=== PATIENT | female | born 1955 | race Caucasian/White ===

== ENCOUNTER → 2017-07-29 | Outpatient (CLI) | payer OTHER ==
[~2017-07-29] MED LIST: ACT35 PO; CLB200 PO; CONJ.6255 PO; OXYC-57 PO
[2017-07-29 12:31] LABS: HEMATOCRIT 39.9 % (37-47); MEAN CELL VOLUME 84.9 fL (80-100); MEAN CORPUSCULAR HEMOGLOBIN 28.3 pg (25-34); MEAN CORPUSCULAR HGB CONC 33.3 g/dl (32-36); MEAN PLATELET VOLUME 10.8 fL (7.4-10.4); PLATELET COUNT 132 K/uL (130-400); WHITE BLOOD COUNT 4.59 K/uL (4.8-10.8)
[2017-07-29 12:47] LABS: URINE APPEARANCE CLEAR (CLEAR); URINE BILIRUBIN NEG (NEG); URINE COLOR YELLOW; URINE EPITHELIAL CELL AUTO >30 /lpf (0-5); URINE NITRITE NEG (NEG); URINE PH 6.5 (4.5-7.5); URINE SPECIFIC GRAVITY 1.014 (1.000-1.030); UROBILINOGEN NEG (NEG); ZZUR CULT IF INDIC CLEAN CATCH YES
[2017-07-29 12:51] LABS: MANUAL MICROSCOPIC REQUIRED? NO; REVIEW REQ? NO
[2017-07-29 12:55] LABS: ALT/SGPT 31 U/L (12-78); BLOOD UREA NITROGEN 14 mg/dl (7-18); CARBON DIOXIDE 26 mmol/L (21-32); CHLORIDE 106 mmol/L (98-107); CHOLESTEROL 181 mg/dl (0-200); CREATININE 0.81 mg/dl (0.60-1.20); GLUCOSE 98 mg/dl (70-99); POTASSIUM 4.1 mmol/L (3.5-5.1); SODIUM 141 mmol/L (136-145); TRIGLYCERIDES 147 mg/dl (0-150); VERY LOW DENSITY LIPOPROT CALC 29 mg/dl
[2017-07-29 12:58] LABS: CHOLESTEROL/HDL RATIO 4.2; HDL CHOLESTEROL 43 mg/dl
== END | disposition home or self-care (01) ==
LOC: C.LABMFLN 07:53
PROVIDERS: ATTEND Family Medicine
DX: E78.5 Hyperlipidemia, unspecified (principal); I10 Essential (primary) hypertension; D69.3 Immune thrombocytopenic purpura

== ENCOUNTER → 2018-01-04 | Outpatient (CLI) | payer OTHER ==
[2018-01-04 18:04] LABS: BASO % 0.4 %; BASO ABS # 0.02 K/uL (0-0.2); EOS ABS # 0.27 K/uL (0-0.5); HEMATOCRIT 40.6 % (37-47); HEMOGLOBIN 13.7 g/dL (12.0-16.0); IG# 0.02 K/uL (0.00-0.02); LYMPH % 22.3 %; MEAN CELL VOLUME 84.1 fL (80-100); MEAN CORPUSCULAR HEMOGLOBIN 28.4 pg (25-34); MEAN CORPUSCULAR HGB CONC 33.7 g/dl (32-36); MEAN PLATELET VOLUME 11.3 fL (7.4-10.4); MONO % 5.8 %; MONO ABS # 0.31 K/uL (0.11-0.59); NEUT % 66.1 %; NEUT ABS # 3.57 K/uL (1.4-6.5); PLATELET COUNT 183 K/uL (130-400); RED CELL DISTRIBUTION WIDTH CV 14.9 % (11.5-14.5); RED CELL DISTRIBUTION WIDTH SD 45.9 fL (36.4-46.3); WHITE BLOOD COUNT 5.39 K/uL (4.8-10.8)
[2018-01-04 20:14] LABS: ALT/SGPT 31 U/L (12-78); AST/SGOT 18 U/L (15-37); BLOOD UREA NITROGEN 24 mg/dl (7-18); CALCIUM 9.1 mg/dl (8.5-10.1); CARBON DIOXIDE 25 mmol/L (21-32); CREATININE 0.97 mg/dl (0.60-1.20); GLUCOSE 90 mg/dl (70-99); POTASSIUM 3.9 mmol/L (3.5-5.1); SODIUM 140 mmol/L (136-145)
[2018-01-04 20:25] LABS: ALKALINE PHOSPHATASE 95 U/L (45-117); TOTAL PROTEIN 7.2 gm/dl (6.4-8.2)
== END | disposition home or self-care (01) ==
LOC: C.LABMFLN 13:47
PROVIDERS: ATTEND Family Medicine
DX: R10.2 Pelvic and perineal pain (principal); R19.7 Diarrhea, unspecified

== ENCOUNTER → 2018-01-09 | Outpatient (CLI) | payer OTHER | END | disposition home or self-care (01) | LOC: C.LABMFLN 07:29 | PROVIDERS: ATTEND Family Medicine | DX: R19.7 Diarrhea, unspecified (principal) ==

== ENCOUNTER 2019-07-16 05:19 | Observation (INO) ==
--- NOTE | 2019-07-05 11:38 | Anesthesiology Consultation ---
Date of Service July 05, 2019 Assessment & Plan (1) Encounter for pre-operative examination: Chart Review Chart Review: Acceptable Risk for Surgery and Patient NOT seen in Pre Admission Testing Consults Requested none History Surgery Operation Date: 07/16/19 07:00 Proposed Procedures p Laparoscopic Cholecystectomy, Possible Cholangiogram - Jimenez Beard MD, FACS Height/Weight Height: 5 ft 6 in Weight: 73.482 kg Allergies Allergy/AdvReac Type Severity Reaction Status Date / Time ampicillin Allergy Unknown PLATELETS Verified 06/26/19 08:37 DROP Cephalosporins Allergy Unknown SENSITIVITY Verified 04/10/19 09:41 Penicillins Allergy Unknown SENSITIVITY Verified 04/10/19 09:41 Medications Home Medications Medication Instructions Recorded Confirmed Last Taken ondansetron HCl 4 mg tablet 4 mg PO Q6H PRN #60 tab 04/10/19 06/26/19 Unknown pantoprazole 40 mg tablet,delayed 40 mg PO HS #90 tab 04/10/19 06/26/19 Unknown release lorazepam 1 mg tablet 1 mg PO DAILY PRN #30 tab 06/04/19 06/26/19 Unknown diclofenac sodium 50 mg PO BID 06/26/19 06/26/19 Unknown tramadol-acetaminophen 1 tab PO QID 06/26/19 06/26/19 Unknown Past Medical History Medical History GERD (gastroesophageal reflux disease) History of ITP Osteoarthritis Past Family History Family History Father Cancer Colorectal cancer Past Surgical History Surgical History H/O foot surgery History of esophagogastroduodenoscopy (EGD) History of tubal ligation Hx of colonoscopy with polypectomy Hx of dilation and curettage Social History Smoking Status: Former smoker Do You Dip or Chew Tobacco: No Smoking End Date: 2004 Hx Alcohol Use: Yes Alcohol type: wine alcohol intake frequency: a few times a week Hx Substance Use: No Testing Laboratory Results Laboratory Tests 07/04/19 07/04/19 08:39 08:39 WBC 6.47 Hgb 13.5 Hct 39.7 Plt Count 146 Sodium 139 Potassium 4.1 Chloride 108 H Carbon Dioxide 25 BUN 16 Creatinine 0.82 Glucose 103 H Electrocardiogram Date: 04/07/19 Findings: + NSR @ (65)
[2019-07-16] MEDS ORDERED: LR 15ML/HR IV SCH (06:00)
[2019-07-16] MEDS ORDERED: CIPROFLOXACIN 400 MG/200 ML BAG IV SCH (06:00)
[2019-07-16] MEDS ORDERED: CONRAY 60% 50 ML VIAL ONE (06:46)
[2019-07-16] MEDS ORDERED: BUPIVACAINE 0.5 % 5 MG/1 ML MPF 30ML VIAL ONE (06:46)
[2019-07-16] MEDS ORDERED: NEOSTIGMINE METHYLSULFATE 5 MG/5 ML SYR ONE (06:49)
[2019-07-16] MEDS ORDERED: DEXAMETHASONE SOD INJ 4 MG/ML VIAL ONE (06:49)
[2019-07-16] MEDS ORDERED: fentaNYL citrate 100 MCG/2 ML VIAL ONE ×2 (06:49→07:18)
[2019-07-16] MEDS ORDERED: PROPOFOL IV EMULSION 10 MG/ML 20 ML VIAL IV ONE (06:49)
[2019-07-16] MEDS ORDERED: GLYCOPYRROLATE 0.2 MG/ML VIAL ONE ×2 (06:49→07:48)
[2019-07-16] MEDS ORDERED: LIDOCAINE HCL 2% 2 ML VIAL/AMP(20MG/ML) INFIL ONE (06:49)
[2019-07-16] MEDS ORDERED: MIDAZOLAM HCL 1 MG/ML 2ML VIAL ONE (06:49)
[2019-07-16] MEDS ORDERED: ROCURONIUM BROMIDE 10 MG/ML 5 ML VIAL ONE (06:49)
[2019-07-16] MEDS ORDERED: ONDANSETRON INJ 2 MG/ML 2 ML VIAL ONE (06:49)
[2019-07-16] MEDS ORDERED: ONDANSETRON INJ 2 MG/ML 2 ML VIAL IV PRN ×2 (06:53→09:29)
[2019-07-16] MEDS ORDERED: ePHEDrine sulfate 50 MG/ML AMP IV PRN (06:53)
[2019-07-16] MEDS ORDERED: PROMETHAZINE HCL 6.25 MG in SODIUM CHLORIDE 0.9% 50 ML IV PRN (06:53)
[2019-07-16] MEDS ORDERED: ATROPINE SULFATE 0.1 MG/ML 10ML SYR IV PRN (06:53)
[2019-07-16] MEDS ORDERED: ACETAMINOPHEN 1000 MG/100 ML IV IV ONE (06:56)
--- NOTE | 2019-07-16 08:02 | Post Operative Brief Note ---
PG Immediate Post Op with CF Date of Surgery July 16, 2019 Pre & Post Diagnosis Operation Date: 07/16/19 07:00 Pre-Op Diagnosis: biliary colic Post-Op Diagnosis: biliary colic, chronic cholecystitis, adhesions I identified the patient and participated in the time-out.: Yes Procedure Operation Date: 07/16/19 07:00 Actual Procedures p Laparoscopic Cholecystectomy(Not Applicable) - Jimenez Beard MD, FACS lysis of adhesions Surgeon Jimenez Beard MD, FACS Pierogi Maker Coreen Galeana Estimated Blood Loss 10 Findings Consistent with Post-Op Diagnosis Specimens Specimen Description: Permanent: A. Gallbladder and contents
--- NOTE | 2019-07-16 08:17 | Operative Report ---
DATE OF OPERATION: 07/16/2019 NAME OF OPERATION: Laparoscopic cholecystectomy with lysis of adhesions. PREOPERATIVE DIAGNOSIS: Biliary colic with gallbladder hyperkinesia. STAFF SURGEON: Jimenez Beard MD BUSINESS SERVICES COORDINATOR: Bc Galeana PA-C ANESTHESIA: General. DESCRIPTION OF PROCEDURE: The patient was brought in the operating room and placed on the operating table in supine position. Her abdomen was prepped and draped in usual fashion. My licensed sales assistant helped with prepping, draping, removal of the gallbladder and closure of the wounds. A 0.5% plain Marcaine was used to anesthetize all incisions. Incision was made just above the umbilicus, carrying dissection down into the fascia, placing a Veress needle producing pneumoperitoneum. An 11 mm port was placed at this level. Then under visualization, the patient did have adhesions of the omentum to the anterior abdominal wall causing some difficulty with visualization initially. We did place a second 5 mm port laterally and then using a 5 mm scope, we were able to place additional 5 mm ports cephalad and then again another one laterally. The gallbladder was grasped and retracted. There were adhesions to the gallbladder consistent with chronic inflammation. These were taken down. Dissection was carried to the ronald hepatis, identifying the cystic duct and cystic artery. The duct was very small and narrow. These were transected and the gallbladder dissected away from the liver bed. There was chronic thickening posteriorly indicating chronic scar tissue and chronic cholecystitis. Gallbladder was then placed in an Endobag and then removed through the 11 mm site. After appropriate irrigation and hemostasis, all ports were removed. Fascia at the umbilicus closed using interrupted 0 Vicryl suture, then the skin reapproximated using 5-0 Prolene suture. The patient was transferred to recovery room in stable condition. I attest to the content of the Intraoperative Record and any orders documented therein. Any exception s are noted below.
[2019-07-16] MEDS: fentaNYL citrate 100 MCG/2 ML VIAL IV PRN ×2 (08:29→08:40)
--- NOTE | 2019-07-16 09:06 | Anesthesiology Progress Note ---
Date of Service July 16, 2019 Anesthesia Post Procedure Vital Signs Vital Signs: Temp Pulse Pulse Resp BP BP Pulse Ox 07/16/19 08:55 60 12 132/65 100 07/16/19 08:45 59 L 18 122/59 L 100 07/16/19 08:35 63 18 130/52 L 99 07/16/19 08:25 60 14 141/67 H 100 07/16/19 08:19 36.5 C 78 18 149/73 H 100 07/16/19 05:40 36.6 C 68 16 136/81 96 Pain Intensity Abdomen: Pain Intensity: 3 Transfer of Care Handoff Completed per policy Notes Mental Status: alert / awake / arousable Patient Amnestic to Procedure: Yes Nausea / Vomiting: adequately controlled Pain: adequately controlled Airway Patency, RR, SpO2: stable & adequate BP & HR: stable & adequate Hydration State: stable & adequate Anesthetic Complications: no major complications apparent
[2019-07-16] MEDS ORDERED: PROMETHAZINE HCL 12.5 MG in SODIUM CHLORIDE 0.9% 50 ML IV PRN (09:29)
[2019-07-16] MEDS ORDERED: HYDROCODONE/ACETAMOPHEN 5/325MG TAB PO PRN (09:29)
[2019-07-16] MEDS ORDERED: PROMETHAZINE HCL 25 MG in SODIUM CHLORIDE 0.9% 50 ML IV PRN (09:29)
[2019-07-16] MEDS ORDERED: IBUPROFEN 600 MG TAB PO PRN (09:29)
[2019-07-16] MEDS ORDERED: ACETAMINOPHEN 325 MG TAB PO PRN (09:29)
[2019-07-16] MEDS ORDERED: LACTATED RINGER'S 1,000 ML IV SCH (09:29)
[2019-07-16] MEDS: DICLOFENAC SODIUM 25 MG TABDR PO SCH ×2 (10:55→20:33)
[2019-07-16] MEDS ORDERED: INFLUENZA VACCINE HIGH DOSE 65+ 0.5 ML SYR IM ONE (11:00)
[2019-07-16] MEDS ORDERED: INFLUENZA ADMINISTRATION CHARGE ONE (11:00)
[2019-07-16] MEDS ORDERED: LORazepam 1 MG TAB PO PRN (13:51)
[2019-07-16] MEDS: HYDROCODONE/ACETAMOPHEN 5/325MG TAB PO PRN ×2 (14:05→19:12)
[2019-07-16] MEDS ORDERED: PANTOprazole 40 MG TAB PO SCH (21:00)
--- NOTE | 2019-07-17 07:47 | Discharge Summary ---
DATE OF ADMISSION: 07/16/2019 DATE OF DISCHARGE: 07/17/2019 PRINCIPAL DIAGNOSIS: Chronic cholecystitis. PROCEDURES: The patient underwent laparoscopic cholecystectomy. HISTORY OF PRESENT ILLNESS: The patient is a 63-year-old female who has been having recurrent right upper quadrant abdominal pain, brought into the hospital on 07/16/2019 to undergo elective gallbladder surgery. She did have adhesions to the gallbladder and some scar tissue consistent with chronic changes and inflammation. She did well other surgeries, done well overnight and is felt stable for discharge home today to be followed in the surgical clinic next week.
--- NOTE | 2019-07-17 08:11 | Anesthesiology Progress Note ---
Date of Service July 17, 2019 Anesthesia Post Procedure Vital Signs Vital Signs: Temp Pulse Pulse Resp BP BP Pulse Ox 07/17/19 07:13 36.7 C 63 18 157/76 H 99 07/17/19 03:20 36.4 C L 78 16 126/72 97 07/16/19 22:45 36.5 C 81 16 127/70 94 07/16/19 14:56 36.7 C 76 17 145/70 H 92 07/16/19 12:20 36.7 C 71 16 132/76 97 07/16/19 11:20 67 16 150/75 H 96 07/16/19 10:19 36.7 C 60 16 146/77 H 97 07/16/19 09:55 36.4 C L 57 L 18 167/62 H 98 07/16/19 09:05 36.3 C L 61 14 142/64 H 99 07/16/19 08:55 60 12 132/65 100 07/16/19 08:45 59 L 18 122/59 L 100 07/16/19 08:35 63 18 130/52 L 99 07/16/19 08:25 60 14 141/67 H 100 07/16/19 08:19 36.5 C 78 18 149/73 H 100 Pain Intensity Abdomen: Pain Intensity: 5 Notes Mental Status: alert / awake / arousable Patient Amnestic to Procedure: Yes Nausea / Vomiting: adequately controlled Pain: adequately controlled Airway Patency, RR, SpO2: stable & adequate BP & HR: stable & adequate Hydration State: stable & adequate Anesthetic Complications: no major complications apparent
[2019-07-17] MEDS: DICLOFENAC SODIUM 25 MG TABDR PO SCH (08:56)
[2019-07-17] MEDS: HYDROCODONE/ACETAMOPHEN 5/325MG TAB PO PRN (09:00)
== END 2019-07-17 10:30 | disposition home or self-care (01) ==
LOC: ASU 05:19 → 3N 05:19